=== PATIENT | male | born 1965 ===

== ENCOUNTER 2022-03-08 17:00 | Inpatient (IN) | payer MEDICAID ==
[2022-03-09 06:13] LABS: Alanine Aminotransferase 14 units/L (7-56); Albumin 3.7 g/dL (3.9-5); Blood Urea Nitrogen 12 mg/dL (9-20); Calcium 9.1 mg/dL (8.4-10.2); HDL Cholesterol 53 mg/dL (40-59); Hemolysis Index 4; LDL Cholesterol,Direct 44 mg/dL (50-130)
[2022-03-09 06:14] LABS: BUN/Creatinine Ratio 17
[2022-03-09 06:19] LABS: Basophils % (Auto) 0.2 % (0.0-1.8); Hematocrit 38.2 % (35.5-45.6); Hemoglobin 12.8 gm/dl (11.8-15.2); Lymphocytes # (Auto) 1.5 K/mm3 (1.2-5.4); Lymphocytes % (Auto) 45.6 % (13.4-35.0); Mean Corpuscular HGB Conc 34 % (32-34); Mean Corpuscular Volume 92 fl (84-94); Monocytes # (Auto) 0.4 K/mm3 (0.0-0.8); Monocytes % (Auto) 11.2 % (0.0-7.3); Platelet Count 187 K/mm3 (140-440); Red Blood Count 4.15 M/mm3 (3.65-5.03); Red Cell Distribution Width 12.4 % (13.2-15.2)
[2022-03-09] MEDS ORDERED: NON-FORMULARY EACH (Hydroxyzine Hcl [Hydroxyzine] 50 MG Tablet) PO SCH (10:00)
--- NOTE | 2022-03-09 10:32 | Consultation ---
History of Present Illness - Reason for Consult Consult date: 03/09/22 Medical management Requesting physician: JONAS ALVAREZ - History of Present Illness 56 YO Female with GERD, Bipolar Disorder, Schizophrenia admitted to [facility] for Psychiatric stabilization. Consult placed by Dr. Alvarez for medical management. Patient seen and evaluated in the recreation room. Patient resting calmly. Patient denies fever, chills, chest pain, palpitation, productive cough, skin rash, recent contact, known exposure to COVID-19. No reported nursing events. Patient resting comfortably. Patient is at baseline level of cognition and function. Past History Past Medical History: GERD Past Surgical History: Other (Right hand surgery) Social history: single. denies: smoking, alcohol abuse, prescription drug abuse Family history: no significant family history, other (Reviewed) Medications and Allergies Allergies Allergy/AdvReac Type Severity Reaction Status Date / Time orange Allergy Unknown Unverified 03/08/22 17:05 Home Medications Medication Instructions Recorded Confirmed Last Taken Type Benztropine [Cogentin] 1 mg PO BID 03/08/22 03/08/22 Unknown History Divalproex ER [DepaKOTE ER] 500 mg PO BID 03/08/22 03/09/22 Unknown History Hydroxyzine HCl [hydrOXYzine] 50 mg PO BID 03/08/22 03/08/22 Unknown History Ibuprofen [Motrin] 800 mg PO Q8HR PRN 03/08/22 03/08/22 Unknown History risperiDONE [RisperDAL] 1 mg PO HS 03/08/22 03/08/22 Unknown History Trazodone HCl 100 mg PO QHS 03/09/22 03/09/22 Unknown History Active Meds: Active Medications Benztropine Mesylate (Benztropine 1 Mg Tab) 1 mg PO BID [facility] Divalproex Sodium (Divalproex Er 500 Mg Tab) 500 mg PO BID [facility] Hydroxyzine HCl (Hydroxyzine Hcl 25 Mg Tab) 50 mg PO BID [facility] Ibuprofen (Ibuprofen 800 Mg Tab) 800 mg PO Q8HR PRN PRN Reason: Pain , Severe (7-10) Risperidone (Risperidone 1 Mg Tab) 1 mg PO HS [facility] Trazodone HCl (Trazodone 100 Mg Tab) 100 mg PO QHS [facility] Ziprasidone (Ziprasidone Mesylate 20 Mg Vial) 20 mg IM Q4H PRN PRN Reason: Agitation Review of Systems Constitutional: no weight loss, no weight gain, no fever, no chills Ears, nose, mouth and throat: no ear pain, no nose pain, no nasal congestion, no sinus pressure Cardiovascular: no chest pain, no rapid/irregular heart beat, no syncope, no lightheadedness Respiratory: no cough, no excessive sputum, no hemoptysis, no shortness of breath, no dyspnea on exertion Gastrointestinal: no abdominal pain, no vomiting, no diarrhea, no hematemesis, no coffee ground emesis Genitourinary Male: no dysuria, no hematuria, no flank pain, no discharge Rectal: no pain, no incontinence, no bleeding Musculoskeletal: no neck stiffness, no shooting arm pain, no arm numbness/ti ngling, no low back pain, no shooting leg pain, no leg numbness/tingling Integumentary: no rash, no redness, no wounds, no jaundice, no boils Neurological: no head injury, no transient paralysis, no weakness, no numbness, no tingling, no seizures, no syncope, no tremors, no ataxia Psychiatric: difficulties concentrating, confusion, irritability, mood swings Endocrine: no cold intolerance, no heat intolerance, no polyphagia, no excessive thirst, no polydipsia Hematologic/Lymphatic: no easy bruising, no easy bleeding Allergic/Immunologic: no urticaria Exam - Constitutional Vitals: Temp Pulse Resp BP Pulse Ox 97.9 F 57 L 16 113/61 100 03/08/22 23:06 03/08/22 23:06 03/08/22 23:06 03/08/22 23:06 03/08/22 23:06 General appearance: Present: no acute distress, well-nourished - EENT Eyes: Present: PERRL ENT: hearing intact, clear oral mucosa - Neck Neck: Present: supple, normal ROM - Respiratory Respiratory effort: normal Respiratory: bilateral: CTA - Cardiovascular Heart Sounds: Present: S1 & S2. Absent: rub, click - Extremities Extremities: pulses symmetrical, No edema Peripheral Pulses: within normal limits - Abdominal General gastrointestinal: Present: soft, non-tender, non-distended, normal bowel sounds Male genitourinary: Present: normal - Integumentary Integumentary: Present: clear, warm, dry - Musculoskeletal Musculoskeletal: gait normal, strength equal bilaterally - Psychiatric Psychiatric: cooperative - Neurologic Neurologic: CNII-XII intact, moves all extremities Results - Labs CBC & Chem 7: 03/09/22 05:36 03/09/22 05:36 Labs: Abnormal lab results 03/09/22 03/09/22 Range/Units 05:36 05:36 WBC 3.2 L (4.5-11.0) K/mm3 RDW 12.4 L (13.2-15.2) % Lymph % (Auto) 45.6 H (13.4-35.0) % Daniels % (Auto) 11.2 H (0.0-7.3) % Seg Neutrophils # 1.4 L (1.8-7.7) K/mm3 Creatinine 0.7 L (0.8-1.3) mg/dL Total Protein 6.2 L (6.3-8.2) g/dL Albumin 3.7 L (3.9-5) g/dL LDL Cholesterol Direct 44 L (50-130) mg/dL Assessment and Plan - Patient Problems (1) Bipolar disorder Current Visit: Yes Status: Acute Plan to address problem: Continue medical management, supportive care. (2) Schizophrenia Current Visit: Yes Status: Acute Plan to address problem: Continue medical management, supportive care. Cognitive behavioral therapy. Medication compliance. (3) GERD (gastroesophageal reflux disease) Current Visit: Yes Status: Acute Qualifiers: Esophagitis presence: without esophagitis Qualified Code(s): K21.9 - Gastro -esophageal reflux disease without esophagitis Plan to address problem: PPI therapy, supportive care. (4) Advance care planning Current Visit: Yes Status: Acute Plan to address problem: Disease education conducted, care plan discussed, diagnoses discussed, prognosis discussed, patient is full code. Patient acknowledges understanding and agreement with care plan, +30 minutes. (5) Preventative health care Current Visit: Yes Status: Acute Plan to address problem: Patient counseled regarding medication compliance, risk factor reduction, outpatient follow-up with primary care physician for all age and risk factor appropriate screening test. +30 minutes.
[2022-03-09] MEDS ORDERED: ZIPRASIDONE MESYLATE 20 MG VIAL IM PRN (11:00)
[2022-03-09] MEDS: DIVALPROEX ER 500 MG TAB PO SCH ×2 (11:20→21:22)
[2022-03-09] MEDS: BENZTROPINE 1 MG TAB PO SCH ×2 (11:20→21:21)
[2022-03-09] MEDS ORDERED: IBUPROFEN 800 MG TAB PO PRN (14:00)
--- NOTE | 2022-03-09 15:04 | Progress Note ---
Subjective Date of service: 03/09/22 Principal diagnosis: Schizophrenia Subjective Comment: HPI: Pt reportedly went to the hospital ED requesting for psychiatric eval. Per documentation, pt also reported visual & auditory hallucinations, heavy drinking & cocaine use. Also stated that he stopped taking his meds & started drinking. The patient was seen today. He is irritable, paranoid, delusional, and uncooperative. The patient says "don't ask me anything I've already told somebody else. He says "I'm not into playing childish games. I'm here for business." He then refuses to cooperate further. PAST PSYCHIATRIC HISTORY: Unable to ass PAST MEDICAL HISTORY: None reported Family Psychiatric History: None reported or documented SOCIAL HISTORY Unable to assess REVIEW OF SYSTEMS Unable to assess MENTAL STATUS EXAMINATION Unable to assess Diagnoses: Schizophrenia Treatment Plan Patient admitted for inpatient psychiatric evaluation, medication adjustment and close monitoring The patient's behavior, mood, sleep and appetite will be closely monitored. Patient enrolled in individual and group therapeutic sessions and encouraged to attend. Patient provided with a safe and structured environment. Patient's physical health needs will be addressed by the Hospitalist. [facility] Consult[facility] Labs including CBC, CMP, Lipid profile and Hemoglobin A1C levels ordered for baseline reference Social Assessment will be completed and the Poultry Scalder will work with patient and family to ensure a suitable and safe disposition Medication adjustment will be made as clinically indicated Continue home meds Usual Wellness Tenriism/Preservation: - Start Trazodone 50 mg po QHS & 50 mg po QHS PRN between 10 PM & 2 AM for insomnia - Start Melatonin 5 mg po QHS to promote circadian rhythm The patient agreed on the treatment plan, understood the risk, benefit, alternative treatment, potential consequence of no treatment, and gave informed consent. Estimated days: 7 Post hospital care: primary care provider, psychiatric provider Case staffed with Dr. Gandara Medications and Allergies Allergies Allergy/AdvReac Type Severity Reaction Status Date / Time orange Allergy Unknown Unverified 03/08/22 17:05 Home Medications Medication Instructions Recorded Confirmed Last Taken Type Benztropine [Cogentin] 1 mg PO BID 03/08/22 03/08/22 Unknown History Divalproex ER [DepaKOTE ER] 500 mg PO BID 03/08/22 03/09/22 Unknown History Hydroxyzine HCl [hydrOXYzine] 50 mg PO BID 03/08/22 03/08/22 Unknown History Ibuprofen [Motrin] 800 mg PO Q8HR PRN 03/08/22 03/08/22 Unknown History risperiDONE [RisperDAL] 1 mg PO HS 03/08/22 03/08/22 Unknown History Trazodone HCl 100 mg PO QHS 03/09/22 03/09/22 Unknown History Active Meds: Active Medications Benztropine Mesylate (Benztropine 1 Mg Tab) 1 mg PO BID [facility] Last Admin: 03/09/22 11:20 Dose: 1 mg Divalproex Sodium (Divalproex Er 500 Mg Tab) 500 mg PO BID [facility] Last Admin: 03/09/22 11:20 Dose: 500 mg Hydroxyzine HCl (Hydroxyzine Hcl 25 Mg Tab) 50 mg PO BID [facility] Ibuprofen (Ibuprofen 800 Mg Tab) 800 mg PO Q8HR PRN PRN Reason: Pain , Severe (7-10) Risperidone (Risperidone 1 Mg Tab) 1 mg PO HS [facility] Trazodone HCl (Trazodone 100 Mg Tab) 100 mg PO QHS [facility] Ziprasidone (Ziprasidone Mesylate 20 Mg Vial) 20 mg IM Q4H PRN PRN Reason: Agitation Results - Results Labs/Vitals: Laboratory Last Values WBC 3.2 K/mm3 (4.5-11.0) L 03/09/22 05:36 RBC 4.15 M/mm3 (3.65-5.03) 03/09/22 05:36 Hgb 12.8 gm/dl (11.8-15.2) 03/09/22 05:36 Hct 38.2 % (35.5-45.6) 03/09/22 05:36 MCV 92 fl (84-94) 03/09/22 05:36 MCH 31 pg (28-32) 03/09/22 05:36 MCHC 34 % (32-34) 03/09/22 05:36 RDW 12.4 % (13.2-15.2) L 03/09/22 05:36 Plt Count 187 K/mm3 (140-440) 03/09/22 05:36 Lymph % (Auto) 45.6 % (13.4-35.0) H 03/09/22 05:36 Isabela % (Auto) 11.2 % (0.0-7.3) H 03/09/22 05:36 Eos % (Auto) 0.0 % (0.0-4.3) 03/09/22 05:36 Baso % (Auto) 0.2 % (0.0-1.8) 03/09/22 05:36 Lymph # (Auto) 1.5 K/mm3 (1.2-5.4) 03/09/22 05:36 Isabela # (Auto) 0.4 K/mm3 (0.0-0.8) 03/09/22 05:36 Eos # (Auto) 0.0 K/mm3 (0.0-0.4) 03/09/22 05:36 Baso # (Auto) 0.0 K/mm3 (0.0-0.1) 03/09/22 05:36 Seg Neutrophils % 43.0 % (40.0-70.0) 03/09/22 05:36 Seg Neutrophils # 1.4 K/mm3 (1.8-7.7) L 03/09/22 05:36 Sodium 140 mmol/L (137-145) 03/09/22 05:36 Potassium 4.6 mmol/L (3.6-5.0) 03/09/22 05:36 Chloride 104.3 mmol/L (98-107) 03/09/22 05:36 Carbon Dioxide 28 mmol/L (22-30) 03/09/22 05:36 Anion Gap 12 mmol/L 03/09/22 05:36 BUN 12 mg/dL (9-20) 03/09/22 05:36 Creatinine 0.7 mg/dL (0.8-1.3) L 03/09/22 05:36 Estimated GFR > 60 ml/min 03/09/22 05:36 BUN/Creatinine Ratio 17 % 03/09/22 05:36 Glucose 94 mg/dL (75-100) 03/09/22 05:36 Hemoglobin A1c 4.7 % (4-6) 03/09/22 05:36 Calcium 9.1 mg/dL (8.4-10.2) 03/09/22 05:36 Total Bilirubin 0.50 mg/dL (0.1-1.2) 03/09/22 05:36 AST 18 units/L (5-40) 03/09/22 05:36 ALT 14 units/L (7-56) 03/09/22 05:36 Alkaline Phosphatase 71 units/L (35-129) 03/09/22 05:36 Total Protein 6.2 g/dL (6.3-8.2) L 03/09/22 05:36 Albumin 3.7 g/dL (3.9-5) L 03/09/22 05:36 Albumin/Globulin Ratio 1.5 % 03/09/22 05:36 Triglycerides 43 mg/dL (2-149) 03/09/22 05:36 Cholesterol 101 mg/dL (50-199) 03/09/22 05:36 LDL Cholesterol Direct 44 mg/dL (50-130) L 03/09/22 05:36 HDL Cholesterol 53 mg/dL (40-59) 03/09/22 05:36 Cholesterol/HDL Ratio 1.90 % 03/09/22 05:36 TSH 0.564 mlU/mL (0.270-4.200) 03/09/22 05:36 Last Vital Signs Temp 98.7 F 03/09/22 09:45 Pulse 57 L 03/08/22 23:06 Resp 18 03/09/22 09:45 BP 120/54 03/09/22 09:45 Pulse Ox 100 03/08/22 23:06
--- NOTE | 2022-03-09 15:08 | History and Physical Report ---
GP History & Physical - History of Present Illness Date of admission: 03/08/22 Date of Examination: 03/09/22 Reason for Admission: Danger to self History of Present Illness: HPI: Pt reportedly went to the hospital ED requesting for psychiatric eval. Per documentation, pt also reported visual & auditory hallucinations, heavy drinking & cocaine use. Also stated that he stopped taking his meds & started drinking. The patient was seen today. He is irritable, paranoid, delusional, and uncooperative. The patient says "don't ask me anything I've already told somebody else. He says "I'm not into playing childish games. I'm here for business." He then refuses to cooperate further. PAST PSYCHIATRIC HISTORY: Unable to ass PAST MEDICAL HISTORY: None reported Family Psychiatric History: None reported or documented SOCIAL HISTORY Unable to assess REVIEW OF SYSTEMS Unable to assess MENTAL STATUS EXAMINATION Unable to assess Diagnoses: Schizophrenia Treatment Plan Patient admitted for inpatient psychiatric evaluation, medication adjustment and close monitoring The patient's behavior, mood, sleep and appetite will be closely monitored. Patient enrolled in individual and group therapeutic sessions and encouraged to attend. Patient provided with a safe and structured environment. Patient's physical health needs will be addressed by the Hospitalist. Hospitalist Consulted Labs including CBC, CMP, Lipid profile and Hemoglobin A1C levels ordered for baseline reference Social Assessment will be completed and the Cellular Plastics Cutter will work with patient and family to ensure a suitable and safe disposition Medication adjustment will be made as clinically indicated Continue home meds Usual Wellness Quaker/Preservation: - Start Trazodone 50 mg po QHS & 50 mg po QHS PRN between 10 PM & 2 AM for insomnia - Start Melatonin 5 mg po QHS to promote circadian rhythm The patient agreed on the treatment plan, understood the risk, benefit, alternative treatment, potential consequence of no treatment, and gave informed consent. Estimated days: 7 Post hospital care: primary care provider, psychiatric provider Case staffed with Dr. Gandara Legal Status: Voluntary Reaction to Hospitalization: Accepting Medications and Allergies Allergies Allergy/AdvReac Type Severity Reaction Status Date / Time orange Allergy Unknown Unverified 03/08/22 17:05 Home Medications Medication Instructions Recorded Confirmed Last Taken Type Benztropine [Cogentin] 1 mg PO BID 03/08/22 03/08/22 Unknown History Divalproex ER [DepaKOTE ER] 500 mg PO BID 03/08/22 03/09/22 Unknown History Hydroxyzine HCl [hydrOXYzine] 50 mg PO BID 03/08/22 03/08/22 Unknown History Ibuprofen [Motrin] 800 mg PO Q8HR PRN 03/08/22 03/08/22 Unknown History risperiDONE [RisperDAL] 1 mg PO HS 03/08/22 03/08/22 Unknown History Trazodone HCl 100 mg PO QHS 03/09/22 03/09/22 Unknown History Active Meds: Active Medications Benztropine Mesylate (Benztropine 1 Mg Tab) 1 mg PO BID [facility] Last Admin: 03/09/22 11:20 Dose: 1 mg Divalproex Sodium (Divalproex Er 500 Mg Tab) 500 mg PO BID [facility] Last Admin: 03/09/22 11:20 Dose: 500 mg Hydroxyzine HCl (Hydroxyzine Hcl 25 Mg Tab) 50 mg PO BID [facility] Ibuprofen (Ibuprofen 800 Mg Tab) 800 mg PO Q8HR PRN PRN Reason: Pain , Severe (7-10) Risperidone (Risperidone 1 Mg Tab) 1 mg PO HS [facility] Trazodone HCl (Trazodone 100 Mg Tab) 100 mg PO QHS [facility] Ziprasidone (Ziprasidone Mesylate 20 Mg Vial) 20 mg IM Q4H PRN PRN Reason: Agitation Results - Results Labs/Vitals: Laboratory Last Values WBC 3.2 K/mm3 (4.5-11.0) L 03/09/22 05:36 RBC 4.15 M/mm3 (3.65-5.03) 03/09/22 05:36 Hgb 12.8 gm/dl (11.8-15.2) 03/09/22 05:36 Hct 38.2 % (35.5-45.6) 03/09/22 05:36 MCV 92 fl (84-94) 03/09/22 05:36 MCH 31 pg (28-32) 03/09/22 05:36 MCHC 34 % (32-34) 03/09/22 05:36 RDW 12.4 % (13.2-15.2) L 03/09/22 05:36 Plt Count 187 K/mm3 (140-440) 03/09/22 05:36 Lymph % (Auto) 45.6 % (13.4-35.0) H 03/09/22 05:36 Saunders % (Auto) 11.2 % (0.0-7.3) H 03/09/22 05:36 Eos % (Auto) 0.0 % (0.0-4.3) 03/09/22 05:36 Baso % (Auto) 0.2 % (0.0-1.8) 03/09/22 05:36 Lymph # (Auto) 1.5 K/mm3 (1.2-5.4) 03/09/22 05:36 Saunders # (Auto) 0.4 K/mm3 (0.0-0.8) 03/09/22 05:36 Eos # (Auto) 0.0 K/mm3 (0.0-0.4) 03/09/22 05:36 Baso # (Auto) 0.0 K/mm3 (0.0-0.1) 03/09/22 05:36 Seg Neutrophils % 43.0 % (40.0-70.0) 03/09/22 05:36 Seg Neutrophils # 1.4 K/mm3 (1.8-7.7) L 03/09/22 05:36 Sodium 140 mmol/L (137-145) 03/09/22 05:36 Potassium 4.6 mmol/L (3.6-5.0) 03/09/22 05:36 Chloride 104.3 mmol/L (98-107) 03/09/22 05:36 Carbon Dioxide 28 mmol/L (22-30) 03/09/22 05:36 Anion Gap 12 mmol/L 03/09/22 05:36 BUN 12 mg/dL (9-20) 03/09/22 05:36 Creatinine 0.7 mg/dL (0.8-1.3) L 03/09/22 05:36 Estimated GFR > 60 ml/min 03/09/22 05:36 BUN/Creatinine Ratio 17 % 03/09/22 05:36 Glucose 94 mg/dL (75-100) 03/09/22 05:36 Hemoglobin A1c 4.7 % (4-6) 03/09/22 05:36 Calcium 9.1 mg/dL (8.4-10.2) 03/09/22 05:36 Total Bilirubin 0.50 mg/dL (0.1-1.2) 03/09/22 05:36 AST 18 units/L (5-40) 03/09/22 05:36 ALT 14 units/L (7-56) 03/09/22 05:36 Alkaline Phosphatase 71 units/L (35-129) 03/09/22 05:36 Total Protein 6.2 g/dL (6.3-8.2) L 03/09/22 05:36 Albumin 3.7 g/dL (3.9-5) L 03/09/22 05:36 Albumin/Globulin Ratio 1.5 % 03/09/22 05:36 Triglycerides 43 mg/dL (2-149) 03/09/22 05:36 Cholesterol 101 mg/dL (50-199) 03/09/22 05:36 LDL Cholesterol Direct 44 mg/dL (50-130) L 03/09/22 05:36 HDL Cholesterol 53 mg/dL (40-59) 03/09/22 05:36 Cholesterol/HDL Ratio 1.90 % 03/09/22 05:36 TSH 0.564 mlU/mL (0.270-4.200) 03/09/22 05:36 Last Vital Signs Temp 98.7 F 03/09/22 09:45 Pulse 57 L 03/08/22 23:06 Resp 18 03/09/22 09:45 BP 120/54 03/09/22 09:45 Pulse Ox 100 03/08/22 23:06 Physical Examination - Constitutional Vitals: Vital Signs Temp Pulse Resp BP Pulse Ox 98.7 F 57 L 18 120/54 100 03/09/22 09:45 03/08/22 23:06 03/09/22 09:45 03/09/22 09:45 03/08/22 23:06 Temperature -Last 24 Hours Temperature 98.7 F Temperature 97.9 F Mental Status Exam - Vital signs Last Vital Signs Temp 98.7 F 03/09/22 09:45 Pulse 57 L 03/08/22 23:06 Resp 18 03/09/22 09:45 BP 120/54 03/09/22 09:45 Pulse Ox 100 03/08/22 23:06 Physician Certification - Certification Statement Physician Certification Statement: This is an acknowledgement statement that JOYA YANES is a 56 year old M who requires inpatient psychiatric admission for treatment which could reasonably be expected to improve the patient's condition for Estimated period of time patient will need to remain in the hospital: [ ] Plan for post-hospital care: [ ]
[2022-03-09 16:21] LABS: Amorphous Crystals,Urine 2+; Bacteria,Urine 1+ /HPF (Negative); Bilirubin,Urine NEG (Negative); Blood,Urine NEG (Negative); Color,Urine Yellow (Yellow); Mucus,Urine FEW /HPF; Protein,Urine <15 mg/dL mg/dL (Negative)
[2022-03-09] MEDS: hydrOXYzine HCL 25 MG TAB PO SCH ×2 (17:15→21:22)
[2022-03-09] MEDS: risperiDONE 1 MG TAB PO SCH (21:21)
[2022-03-09] MEDS: traZODone 100 MG TAB PO SCH (21:22)
[2022-03-09] MEDS ORDERED: traZODone 50 MG TAB PO SCH (22:00)
--- NOTE | 2022-03-10 09:42 | Progress Note ---
Subjective Date of service: 03/10/22 Principal diagnosis: Schizophrenia Subjective Comment: The patient was seen today. He is disheveled. He is more calm today. He is cooperative. He says he feels better. he says he slept well. The patient says he came to the hospital to get back on his meds. He denies SI/HI or hallucinations of any kind. REVIEW OF SYSTEMS Constitutional: Negative for weight loss ENT: Negative for stridor Respiratory: Negative for cough or hemoptysis All other systems reviewed and are negative MENTAL STATUS EXAMINATION General Appearance: Dressed appropriately Behavior: calm, and cooperative Mood: better Affect and affective range: congruent with stated mood Thought Process: goal directed Speech: normal rate and volume Thought Content: Suicidal Ideation: Denies Homicidal Ideation: Denies HI Hallucinations: Denies Delusions: none elicited Insight and Judgment: Limited Memory/Cognition: Limited Attention: Normal Diagnoses: Schizophrenia Treatment Plan Patient admitted for inpatient psychiatric evaluation, medication adjustment and close monitoring The patient's behavior, mood, sleep and appetite will be closely monitored. Patient enrolled in individual and group therapeutic sessions and encouraged to attend. Patient provided with a safe and structured environment. Patient's physical health needs will be addressed by the Hospitalist. Hospitalist Consulted Labs including CBC, CMP, Lipid profile and Hemoglobin A1C levels ordered for baseline reference Social Assessment will be completed and the Supervisor Accounts Receivable will work with pa amber and family to ensure a suitable and safe disposition Medication adjustment will be made as clinically indicated Invega Sustenna 234mg IM x 1 to increase compliance and maintain continuity of mental wellness. Usual Wellness Yarsani/Preservation: - Start Trazodone 50 mg po QHS & 50 mg po QHS PRN between 10 PM & 2 AM for insomnia - Start Melatonin 5 mg po QHS to promote circadian rhythm The patient agreed on the treatment plan, understood the risk, benefit, alternative treatment, potential consequence of no treatment, and gave informed consent. Estimated days: 7 Post hospital care: primary care provider, psychiatric provider Case staffed with Dr. Gandara Medications and Allergies Allergies Allergy/AdvReac Type Severity Reaction Status Date / Time orange Allergy Unknown Unverified 03/08/22 17:05 Home Medications Medication Instructions Recorded Confirmed Last Taken Type Benztropine [Cogentin] 1 mg PO BID 03/08/22 03/08/22 Unknown History Divalproex ER [DepaKOTE ER] 500 mg PO BID 03/08/22 03/09/22 Unknown History Hydroxyzine HCl [hydrOXYzine] 50 mg PO BID 03/08/22 03/08/22 Unknown History Ibuprofen [Motrin] 800 mg PO Q8HR PRN 03/08/22 03/08/22 Unknown History risperiDONE [RisperDAL] 1 mg PO HS 03/08/22 03/08/22 Unknown History Trazodone HCl 100 mg PO QHS 03/09/22 03/09/22 Unknown History Active Meds: Active Medications Benztropine Mesylate (Benztropine 1 Mg Tab) 1 mg PO BID [facility] Last Admin: 03/09/22 21: Dose: 1 mg Divalproex Sodium (Divalproex Er 500 Mg Tab) 500 mg PO BID [facility] Last Admin: 03/09/22 21: Dose: 500 mg Hydroxyzine HCl (Hydroxyzine Hcl 25 Mg Tab) 50 mg PO BID [facility] Last Admin: 03/09/22 21: Dose: 50 mg Ibuprofen (Ibuprofen 800 Mg Tab) 800 mg PO Q8HR PRN PRN Reason: Pain , Severe (7-10) Risperidone (Risperidone 1 Mg Tab) 1 mg PO [facility] Last Admin: 03/09/22 21: Dose: 1 mg Trazodone HCl (Trazodone 100 Mg Tab) 100 mg PO QHS [facility] Last Admin: 03/09/22 21:22 Dose: 100 mg Ziprasidone (Ziprasidone Mesylate 20 Mg Vial) 20 mg IM Q4H PRN PRN Reason: Agitation Results - Results Labs/Vitals: Laboratory Last Values WBC 3.2 K/mm3 (4.5-11.0) L 03/09/22 05:36 RBC 4.15 M/mm3 (3.65-5.03) 03/09/22 05:36 Hgb 12.8 gm/dl (11.8-15.2) 03/09/22 05:36 Hct 38.2 % (35.5-45.6) 03/09/22 05:36 MCV 92 fl (84-94) 03/09/22 05:36 MCH 31 pg (28-32) 03/09/22 05:36 MCHC 34 % (32-34) 03/09/22 05:36 RDW 12.4 % (13.2-15.2) L 03/09/22 05:36 Plt Count 187 K/mm3 (140-440) 03/09/22 05:36 Lymph % (Auto) 45.6 % (13.4-35.0) H 03/09/22 05:36 [place] % (Auto) 11.2 % (0.0-7.3) H 03/09/22 05:36 Eos % (Auto) 0.0 % (0.0-4.3) 03/09/22 05:36 Baso % (Auto) 0.2 % (0.0-1.8) 03/09/22 05:36 Lymph # (Auto) 1.5 K/mm3 (1.2-5.4) 03/09/22 05:36 [place] # (Auto) 0.4 K/mm3 (0.0-0.8) 03/09/22 05:36 Eos # (Auto) 0.0 K/mm3 (0.0-0.4) 03/09/22 05:36 Baso # (Auto) 0.0 K/mm3 (0.0-0.1) 03/09/22 05:36 Seg Neutrophils % 43.0 % (40.0-70.0) 03/09/22 05:36 Seg Neutrophils # 1.4 K/mm3 (1.8-7.7) L 03/09/22 05:36 Sodium 140 mmol/L (137-145) 03/09/22 05:36 Potassium 4.6 mmol/L (3.6-5.0) 03/09/22 05:36 Chloride 104.3 mmol/L (98-107) 03/09/22 05:36 Carbon Dioxide 28 mmol/L (22-30) 03/09/22 05:36 Anion Gap 12 mmol/L 03/09/22 05:36 BUN 12 mg/dL (9-20) 03/09/22 05:36 Creatinine 0.7 mg/dL (0.8-1.3) L 03/09/22 05:36 Estimated GFR > 60 ml/min 03/09/22 05:36 BUN/Creatinine Ratio 17 % 03/09/22 05:36 Glucose 94 mg/dL (75-100) 03/09/22 05:36 Hemoglobin A1c 4.7 % (4-6) 03/09/22 05:36 Calcium 9.1 mg/dL (8.4-10.2) 03/09/22 05:36 Total Bilirubin 0.50 mg/dL (0.1-1.2) 03/09/22 05:36 AST 18 units/L (5-40) 03/09/22 05:36 ALT 14 units/L (7-56) 03/09/22 05:36 Alkaline Phosphatase 71 units/L (35-129) 03/09/22 05:36 Total Protein 6.2 g/dL (6.3-8.2) L 03/09/22 05:36 Albumin 3.7 g/dL (3.9-5) L 03/09/22 05:36 Albumin/Globulin Ratio 1.5 % 03/09/22 05:36 Triglycerides 43 mg/dL (2-149) 03/09/22 05:36 Cholesterol 101 mg/dL (50-199) 03/09/22 05:36 LDL Cholesterol Direct 44 mg/dL (50-130) L 03/09/22 05:36 HDL Cholesterol 53 mg/dL (40-59) 03/09/22 05:36 Cholesterol/HDL Ratio 1.90 % 03/09/22 05:36 TSH 0.564 mlU/mL (0.270-4.200) 03/09/22 05:36 Urine Color Yellow (Yellow) 03/09/22 15:38 Urine Turbidity Clear (Clear) 03/09/22 15:38 Urine pH 7.0 (5.0-7.0) 03/09/22 15:38 Ur Specific [place] 1.018 (1.003-1.030) 03/09/22 15:38 Urine Protein <15 mg/dl mg/dL (Negative) 03/09/22 15:38 Urine Glucose (UA) Neg mg/dL (Negative) 03/09/22 15:38 Urine Ketones Neg mg/dL (Negative) 03/09/22 15:38 Urine Blood Neg (Negative) 03/09/22 15:38 Urine Nitrite Neg (Negative) 03/09/22 15:38 Urine Bilirubin Neg (Negative) 03/09/22 15:38 Urine Urobilinogen 4.0 mg/dL (<2.0) 03/09/22 15:38 Ur Leukocyte Esterase Neg (Negative) 03/09/22 15:38 Urine WBC (Auto) 2.0 /HPF (0.0-6.0) 03/09/22 15:38 Urine RBC (Auto) 3.0 /HPF (0.0-6.0) 03/09/22 15:38 U Epithel Cells (Auto) < 1.0 /HPF (0-13.0) 03/09/22 15:38 Urine Bacteria (Auto) 1+ /HPF (Negative) 03/09/22 15:38 Amorphous Crystals 2+ 03/09/22 15:38 Urine Mucus Few /HPF 03/09/22 15:38 Last Vital Signs Temp 98.4 F 03/09/22 22:00 Pulse 59 L 03/09/22 22:00 Resp 16 03/09/22 22:00 BP 114/52 03/09/22 22:00 Pulse Ox 100 03/09/22 22:00
[2022-03-10] MEDS ORDERED: PALIPERIDONE PALMITATE 234 MG/1.5 ML SYRINGE IM SCH (09:45)
[2022-03-10] MEDS: hydrOXYzine HCL 25 MG TAB PO SCH ×2 (10:07→21:16)
[2022-03-10] MEDS: DIVALPROEX ER 500 MG TAB PO SCH ×2 (10:07→21:16)
[2022-03-10] MEDS: BENZTROPINE 1 MG TAB PO SCH ×2 (10:07→21:17)
--- NOTE | 2022-03-10 14:49 | XRay Report ---
CHEST 1 VIEW INDICATION / CLINICAL INFORMATION: r/o TB STUDY TIME: 1340 COMPARISON: None available. FINDINGS: SUPPORT DEVICES: None HEART / MEDIASTINUM: No significant abnormality. LUNGS / PLEURA: No significant acute pulmonary or pleural abnormality. No pneumothorax. ADDITIONAL FINDINGS: No significant additional findings. significant additional findings. Signer Name: Aris Washington MD Signed: 03/10/2022 2:45 PM Workstation Name: [id number]
[2022-03-10] MEDS: traZODone 100 MG TAB PO SCH (21:16)
[2022-03-10] MEDS: risperiDONE 1 MG TAB PO SCH (21:17)
--- NOTE | 2022-03-11 09:02 | Discharge Summary ---
Providers - Providers Date of Admission: 03/08/22 23:02 Date of discharge: 03/11/22 Attending physician: JONAS ALVAREZ MD 03/08/22 22:42 Consult to Physician [CONS] Routine Comment: Consulting Provider: LEVAR SMITH Physician Instructions: PS MANAGE THE EXISTING CONDITION Reason For Exam: NEW ADMISSION Primary care physician: INSTRUMENT PANEL ASSEMBLER Hospitalization Reason for admission: psychosis Admitting Diagnosis: F20.9 - SCHIZOPHRENIA, UNSPECIFIED Condition: Stable Hospital course: The patient was provided inpatient psychiatric treatment with safe and supportive environment, group/individual therapy, psychiatric medication, medication adjustment, adverse effect monitor, medical evaluation, medical treatment, social service assessment, social support meeting, placement assessment and psycho-education. The patients mood, cognition, behavior, motivation, compliance to treatment and appreciation on family/social support are improved and stabilized. At the time of discharge, the patient had no suicidal ideas, no homicidal ideas, no aggressive thoughts, no endangering behav ior and no debilitating adverse effects. The patient agreed on the treatment plan, understood the risk, benefit, alternative treatment, potential consequence of no treatment, and gave informed consent. Progress Note: 03/10:The patient was seen today. He is disheveled. He is more calm today. He is cooperative. He says he feels better. he says he slept well. The patient says he came to the hospital to get back on his meds. He denies SI/HI or hallucinations of any kind. Disposition: 01 HOME / SELF CARE / HOMELESS Allergies/Adverse Reactions: Allergies orange Allergy (Verified 03/10/22 10:07) Unknown Vital Signs: Last Vital Signs Temp 98.9 F 03/10/22 19:25 Pulse 69 03/10/22 19:25 Resp 17 03/10/22 19:25 BP 117/53 03/10/22 19:25 Pulse Ox 98 03/10/22 19:25 Last Lab: Laboratory Last Values WBC 3.2 K/mm3 (4.5-11.0) L 03/09/22 05:36 RBC 4.15 M/mm3 (3.65-5.03) 03/09/22 05:36 Hgb 12.8 gm/dl (11.8-15.2) 03/09/22 05:36 Hct 38.2 % (35.5-45.6) 03/09/22 05:36 MCV 92 fl (84-94) 03/09/22 05:36 MCH 31 pg (28-32) 03/09/22 05:36 MCHC 34 % (32-34) 03/09/22 05:36 RDW 12.4 % (13.2-15.2) L 03/09/22 05:36 Plt Count 187 K/mm3 (140-440) 03/09/22 05:36 Lymph % (Auto) 45.6 % (13.4-35.0) H 03/09/22 05:36 [place] % (Auto) 11.2 % (0.0-7.3) H 03/09/22 05:36 Eos % (Auto) 0.0 % (0.0-4.3) 03/09/22 05:36 Baso % (Auto) 0.2 % (0.0-1.8) 03/09/22 05:36 Lymph # (Auto) 1.5 K/mm3 (1.2-5.4) 03/09/22 05:36 [place] # (Auto) 0.4 K/mm3 (0.0-0.8) 03/09/22 05:36 Eos # (Auto) 0.0 K/mm3 (0.0-0.4) 03/09/22 05:36 Baso # (Auto) 0.0 K/mm3 (0.0-0.1) 03/09/22 05:36 Seg Neutrophils % 43.0 % (40.0-70.0) 03/09/22 05:36 Seg Neutrophils # 1.4 K/mm3 (1.8-7.7) L 03/09/22 05:36 Sodium 140 mmol/L (137-145) 03/09/22 05:36 Potassium 4.6 mmol/L (3.6-5.0) 03/09/22 05:36 Chloride 104.3 mmol/L (98-107) 03/09/22 05:36 Carbon Dioxide 28 mmol/L (22-30) 03/09/22 05:36 Anion Gap 12 mmol/L 03/09/22 05:36 BUN 12 mg/dL (9-20) 03/09/22 05:36 Creatinine 0.7 mg/dL (0.8-1.3) L 03/09/22 05:36 Estimated GFR > 60 ml/min 03/09/22 05:36 BUN/Creatinine Ratio 17 % 03/09/22 05:36 Glucose 94 mg/dL (75-100) 03/09/22 05:36 Hemoglobin A1c 4.7 % (4-6) 03/09/22 05:36 Calcium 9.1 mg/dL (8.4-10.2) 03/09/22 05:36 Total Bilirubin 0.50 mg/dL (0.1-1.2) 03/09/22 05:36 AST 18 units/L (5-40) 03/09/22 05:36 ALT 14 units/L (7-56) 03/09/22 05:36 Alkaline Phosphatase 71 units/L (35-129) 03/09/22 05:36 Total Protein 6.2 g/dL (6.3-8.2) L 03/09/22 05:36 Albumin 3.7 g/dL (3.9-5) L 03/09/22 05:36 Albumin/Globulin Ratio 1.5 % 03/09/22 05:36 Triglycerides 43 mg/dL (2-149) 03/09/22 05:36 Cholesterol 101 mg/dL (50-199) 03/09/22 05:36 LDL Cholesterol Direct 44 mg/dL (50-130) L 03/09/22 05:36 HDL Cholesterol 53 mg/dL (40-59) 03/09/22 05:36 Cholesterol/HDL Ratio 1.90 % 03/09/22 05:36 TSH 0.564 mlU/mL (0.270-4.200) 03/09/22 05:36 Urine Color Yellow (Yellow) 03/09/22 15:38 Urine Turbidity Clear (Clear) 03/09/22 15:38 Urine pH 7.0 (5.0-7.0) 03/09/22 15:38 Ur Specific [place] 1.018 (1.003-1.030) 03/09/22 15:38 Urine Protein <15 mg/dl mg/dL (Negative) 03/09/22 15:38 Urine Glucose (UA) Neg mg/dL (Negative) 03/09/22 15:38 Urine Ketones Neg mg/dL (Negative) 03/09/22 15:38 Urine Blood Neg (Negative) 03/09/22 15:38 Urine Nitrite Neg (Negative) 03/09/22 15:38 Urine Bilirubin Neg (Negative) 03/09/22 15:38 Urine Urobilinogen 4.0 mg/dL (<2.0) 03/09/22 15:38 Ur Leukocyte Esterase Neg (Negative) 03/09/22 15:38 Urine WBC (Auto) 2.0 /HPF (0.0-6.0) 03/09/22 15:38 Urine RBC (Auto) 3.0 /HPF (0.0-6.0) 03/09/22 15:38 U Epithel Cells (Auto) < 1.0 /HPF (0-13.0) 03/09/22 15:38 Urine Bacteria (Auto) 1+ /HPF (Negative) 03/09/22 15:38 Amorphous Crystals 2+ 03/09/22 15:38 Urine Mucus Few /HPF 03/09/22 15:38 Syphilis IgG/IgM Ab Reactive (NonReactive) A 03/10/22 23:03 RPR Titer 1:1 (1:1-1:2) 03/10/22 23:03 Core Measure Documentation - Palliative Care Palliative Care/ Comfort Measures: Not Applicable - Core Measures Any of the following diagnoses?: none - VTE Discharge Requirements Deep Vein Thrombosis/Pulmonary Embolism Present on Admission: No Exam - Constitutional Vitals: Temp Pulse Resp BP Pulse Ox 98.9 F 69 17 117/53 98 03/10/22 19:25 03/10/22 19:25 03/10/22 19:25 03/10/22 19:25 03/10/22 19:25 Plan Activity: advance as tolerated Weight Bearing Status: Weight Bear as Tolerated Diet: regular Care Plan Goals: Maintain good and stable mental health. Plan of Treatment: The patient should be compliant with medications, not to use drugs and not to drink alcohol.The patient understands that if suicidal ideas, homicidal ideas, or any endangering thoughts/behavior arise, they should immediately seek for emergent assistance including but not limited to crisis hot line and emergency room. Follow up with outpatient Psychiatrist and PCP within 7 - 14 days of discharge. Follow up with: PRIMARY CARE,MD [Primary Care Provider] - 7 Days Prescriptions: traZODone [Desyrel] 100 mg PO QHS 30 Days #30 tablet Benztropine [Cogentin] 1 mg PO BID 30 Days #60 Divalproex ER [Depakote ER] 500 mg PO BID 30 Days #60 tablet Hydroxyzine HCl [hydrOXYzine] 50 mg PO BID 30 Days #60 risperiDONE [RisperDAL] 1 mg PO HS 30 Days #30 tablet
[2022-03-11 10:11] VITALS: BP 112/45
[2022-03-11] MEDS: hydrOXYzine HCL 25 MG TAB PO SCH (10:11)
[2022-03-11] MEDS: DIVALPROEX ER 500 MG TAB PO SCH (10:11)
[2022-03-11] MEDS: BENZTROPINE 1 MG TAB PO SCH (10:12)
== END 2022-03-11 10:35 | disposition home or self-care (01) | DRG 885 ==
LOC: UNDOADMIN 17:00 → 3A 17:00 → 5A 23:02
PROVIDERS: ADMIT Psychiatry & Neurology Psychiatry; ATTEND Psychiatry & Neurology Psychiatry
DX: F20.9 Schizophrenia, unspecified (principal); F31.9 Bipolar disorder, unspecified; Z91.018 Allergy to other foods; K21.9 Gastro-esophageal reflux disease without esophagitis
CPT/HCPCS: 36415; 71045; 80053; 80061; 81001; 83036; 84443; 85025; 86592; 86593; 86780; G0378; Q0177